=== PATIENT | female | born 1945 | race Caucasian/White ===

== ENCOUNTER 2024-09-25 09:03 | Emergency (ER) | payer MEDICARE, BC ==
[~2024-09-25] VITALS: Ht 157.5 cm; Wt 73.9 kg
[2024-09-25] MEDS: HYDROcodone/acetaminophen 10/325mg tab PO ONE (10:45)
[2024-09-25] MEDS: dexamethasone 4mg/ml inj IM STA (10:46)
--- NOTE | 2024-09-25 11:02 | RADIOLOGY REPORT ---
[facility] INDICATION: back pain COMPARISON: None TECHNIQUE: 2 views of the thoracic spine were obtained. FINDINGS: The thoracic vertebral alignment is normal. 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 The imaged thorax and abdomen are grossly unremarkable. IMPRESSION: No acute fracture.
[2024-09-25] MEDS ORDERED: HYDR-3965 PO (11:09)
--- NOTE | 2024-09-25 11:10 | Physician Documentation ---
History of Present Illness ~ Chief Complaint: Back Pain Stated Complaint: BACK PAIN Time Seen by MD: 09:23 Source: patient Mode of Arrival: POV Exam Limitations: no limitations HPI 79-year-old female with lower back pain that is started a few days ago. No precipitating injury or event. She states that she does have chronic back pain but that her baseline back pain is little bit worse. She has not taken anything for pain in his requesting a Toradol injection here. She denies any weakness or clumsiness over lower extremities, leg pain, urinary retention or bowel or bladder incontinence. No abdominal pain, chest pain or shortness of breath. Medication Reconciliation Allergies: Coded Allergies: No Known Allergies (Unverified , 09/25/24) Scheduled PRN Hydrocodone Bit/Acetaminophen 5/325 MG ([place] 5/325 MG), 1 TAB PO TID PRN PRN for pain Past Medical History Past Medical History: Chronic Back Pain Review of Systems All Other Systems at this time: Reviewed and Negative Physical Exam Physical Exam Vital Signs: Temperature: 98.2, Source: Oral, Heart Rate: 85, Respiratory Rate: 18, BP: 142/76, Pulse Oximetry: 97, Weight: 73.900 Oxygen Flow Rate: 0 Physical Exam General Appearance: Alert, WD/WN. NAD. HEENT: NCAT, PERRL, EOMI. Neck: Supple, trachea midline. Cardiovascular: RRR. No m/r/g. Lungs: CTAB. Breathing unlabored Extremities: Normal inspection. No edema. Spine: No tenderness over the spinous processes of lumbar spine, tenderness over the paraspinal muscles of lower lumbar spine and SI joints. Patient is able to go from lying down to a seated and standing position without assistance or using the hand rails on the gurney. She ambulates in the exam room without signs of distress or needing assistance. Skin: Warm/dry, normal color Neurological: Alert and oriented x4, normal gait. Psychiatric: Affect congruent with mood. Progress Results/Orders Results/Orders Orders - ENIO RODRIGUEZ Thoracic Spine Litd (09/25/24 10:28) Completed Orders - ENIO RODRIGUEZ Dexamethasone Inj (Decadron 4mg/Ml Inj) (09/25/24 10:28) Hydrocodone/Apap 10/325 ([place] 10/325mg (09/25/24 10:30) Thoracic Spine Litd (09/25/24 10:28) Vital Signs 09/25/24 09/25/24 09/25/24 09:10 10:45 11:26 Temp 98.2 98.2 Pulse 85 74 Resp 16 18 16 B/P (MAP) 142/76 144/89 Pulse Ox 97 98 O2 Flow Rate 0 Medical Decision Making Differential Dx:Considerations: Include: AAA, Aortic dissection, , Appendicitis, Bowel obstruction, Cholelithiasis, Cholangitis, DJD, Ectopic , Fracture, Hepatitis, HNP, Musculoskeletal pain, Pancreatitis, Pyelonephritis, Strain, Urinary obstruction, Urolithiasis, Ovarian torsion, Other Departure Time of Disposition: 11:10 Disposition: HOME / SELF CARE / HOMELESS Impression: Primary Impression: Low back pain Qualified Codes: M54.50 - Low back pain, unspecified Condition: Stable Discharge Instructions: Back Exercises Additional Instructions: f/u with pcp for advanced imaging if does not improve xray showed no acute findings but showed degenerative changes and I suspect you may have just moved wronged and pinched a nerve another thing to continue to monitor is monitor for rashes because sometimes shingles can present this way Referrals: NO PRIMARY CARE PROVIDER (PCP) Prescriptions Hydrocodone Bit/Acetaminophen 5/325 MG ([place] 5/325 MG) 5 Mg/325 Mg Tablet 1 TAB PO TID PRN PRN for pain for 5 Days, #15 TAB dx: acute back pain M54.5 Prov: ENIO RODRIGUEZ 09/25/24 Education Educated: Patient Educated regarding: diagnosis, treatment, need for follow up Signature Scribe Signature: x Attestation: ENIO Ordoñez Sep 25, 2024 11:10
[2024-09-25 11:26] VITALS: BP 144/89; PULSE 74; RESP 16; TEMP 98.2; O2SAT 98
== END 2024-09-25 11:14 | disposition home or self-care (01) ==
LOC: ER 09:03
DX: M54.50 Low back pain, unspecified (principal); M54.6 Pain in thoracic spine
CPT/HCPCS: 72070; 96372; 99283; J1100